=== PATIENT | male | born 1970 | race Caucasian/White ===

== ENCOUNTER 2021-11-27 14:56 | Outpatient (CLI) | payer OTHER, SELFPAY ==
[2021-11-27 10:30] LABS: Chloride* 102 mmol/L (96-114)
[2021-11-27 10:31] LABS: Potassium* 4.5 mmol/L (3.6-5.1); Sodium* 139 mmol/L (135-149)
[2021-11-27 10:33] LABS: Cholesterol* 249 mg/dL (90-199); Estimated Glomerular Filt Rate 92 ml/min
[2021-11-27 10:34] LABS: Blood Urea Nitrogen* 15 mg/dL (5-24); Calcium* 9.6 mg/dL (8.4-10.6); Carbon Dioxide* 29 mmol/L (20-32); Glucose* 102 mg/dL (60-115); HDL Cholesterol* 65 mg/dL (>=40); LDL Cholesterol Calculated 160 mg/dL (<100); Triglycerides* 122 mg/dL (40-149)
== END 2021-11-27 14:57 | disposition home or self-care (01) ==
PROVIDERS: PCP Family Medicine; Visit Provider Family Medicine
DX: Z12.5 Encounter for screening for malignant neoplasm of prostate (principal); Z13.6 Encounter for screening for cardiovascular disorders
CPT/HCPCS: 80048; 80061; 84153

== ENCOUNTER 2023-09-09 17:00 | Outpatient (RCR) | payer MEDICAID, SELFPAY ==
--- NOTE | 2023-07-22 11:38 | OT.OPOE ---
OT Outpatient Ortho Eval OT Outpatient Ortho Eval* Start: 07/22/23 07:18 Freq: Status: Active Protocol: Document 07/22/23 07:19 AMB (Rec: 07/22/23 11:22 AMB [id number]) E-signed By Na Pereira, OTR/L, CLT, DRAW BENCH OPERATOR HELPER OT OP Ortho Eval Details Complexity Complexity Low Insurance Information Insurance Information Medicaid,[employer] Outpatient History/Precautions Current Condition/Medical Diagnosis Referring Provider Dr Casarez Treatment Diagnosis LUE pain, weakness, limited AROM due to Medial epicondylitis M77.02 Date of Onset 07/08/[address] Casarez Medical Conditions Depression,Metal Implants, Respiratory,Arthritis Other Conditions Relevant hx: pt has hx of RUE lateral epicondylitis Other PMH (copied from ortho chart): Major depression, recurrent F33.9 - Major depressive disorder, recurrent, unspecified (ICD-10) GERD (gastroesophageal reflux disease) K21.9 - Gastro-esophageal reflux disease without esophagitis (ICD-10) Adult ADHD F90.9 - Attention-deficit hyperactivity disorder, unspecified type (ICD-10) Asthma J45.909 - Unspecified asthma, uncomplicated (ICD-10) Allergic rhinitis J30.9 - Allergic rhinitis, unspecified (ICD-10) IBS (irritable bowel syndrome) K58.9 - Irritable bowel syndrome without diarrhea (ICD -10) 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 - Spondylosis without myelopathy or radiculopathy, lumbar region (ICD-10) H/O excision of mass Z98.890 - Other specified postprocedural states (ICD-10) History of total left hip replacement (03/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) Z96.642 - Presence of left artificial hip joint (ICD-10) Hx of adenoidectomy Z90.89 - Acquired absence of other organs (ICD-10) Medications: albuterol sulfate 90 mcg/ actuation (ProAir HFA) 2 puffs inhalation Q4-6H PRN bupropion HCl 300 mg PO QAM cholecalciferol (vitamin D3) 2 ,000 units PO DAILY dextroamphetamine-amphetamine 10 mg ER (Adderall XR) 10 mg PO QAM fexofenadine 180 mg PO DAILY fluticasone propionate 50 mcg/ actuation 1 intranasal DAILY methocarbamol 500 mg PO TID PRN montelukast (Singulair) 10 mg PO QPM omega-3 fatty acids-fish oil 340-1,000 mg (Fish Oil) 1 cap PO QDAY omeprazole 20 mg PO QDAY Medical/Functional History Medical History Reviewed Yes Prior Level of Function/Mobility Prior to onset of left elbow medial epicondylitis, pt had full, pain-free use of his LUE . Pt is RHD, does have hx of lateral epicondylitis in his RUE, treated successfully conservatively. 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 Pt states it was relatively a slow onset but he did have one incident while doing a pull up that was the final straw, states he felt instant pain and he knew he could not ignore it any longer. Pt states initially the pain was quite severe throughout his forearm, now the pain is mostly centralized in the medial elbow. Pt denies paresthesia, although, he does occasionally have some tingling in his pinky. Pt denies constant pain. Pt has pain with specific activities that require gripping, especially if this is combined with lifting. Specific activities that increase pain include biceps curls, pull-ups , driving his motorcycle, or holding arm in a still position for a prolonged period of time. Pt also has pain when he straightens his elbow fully. Pt rates his average pain at 4-7, depending on which activity he is doing . Pt does not feel that either of his jobs irritate his pain , states he does not really do repetitive activities with his left hand for his work, does not need to type for prolonged periods of time and does not have increased pain with work related activities. Pt was given a prescription for Celebrex but states he really has not been using it regularly. Cannot take OTC NSAIDs as they trigger his IBS . Pt has not really been using ice on a regular basis either . Goniometric Comments Goniometric Comments Goniometric Comments 07/22/23 AROM of BUE is WNL throughout. Hand Pinch/Director Institution Strength Hand Right Director Institution Strength Position 1 (lbs) 122 Director Institution Strength Position 2 (lbs) 117 Lateral Pinch Strength (lbs) 22 Three Point Pinch (lbs) 24 Left Director Institution Strength Position 1 (lbs) 85 Director Institution Strength Position 2 (lbs) 115 Lateral Pinch Strength (lbs) 20 Three Point Pinch (lbs) 20 Comments Comments 07/22/23 Pt has pain in his LUE medial elbow with field collector and pinch strength testing, especially with field collector in position 1. OT Objective Data Hand Hand Dominance Right Observations/Posture/Limb Appearance Objective Observations 07/22/23 Mild swelling is appreciated over the medial epicondyle of the LUE. Pt is extremely hypermobile, demonstrated his ability to distract and rotate his fingers and hyper-extend his MPs ~60 deg in the clinic today, states all of his joints are like this. Sensation Sensation Assessment Summary Comments 07/22/23 Denies paresthesia, mild tingling reported in the pinky, once in a while. Upper Extremity Special Tests Elbow Cozens Test Positive Left Upper Extremity Special Tests Comments Comments 07/22/23 Pt experiences increased pain with resisted wrist flexion, gripping, and pronation. Pt is also point tender at insertion point of flexors on medial epicondyle of the LUE. OT Problems Problems Problems Decreased Strength,Decreased Range of Motion,Pain,Lifting, Gripping,Pinching Problems Comments Pt is not able to participate in all of his exs for his daily work-out due to his elbow pain. Pt relies on working out for joint protection (pt is very hypermobile) and depression management. Other Problems Opening Containers Assessment Assessment Assessment Provocative testing supports diagnosis of medial epicondyle . Occupational Therapy Treatment Plan - OP Potential Rehabilitation Potential Good Set Goals Goals Set with Patient Yes Goals Goals 1. Pt will be independent and compliant with HEP in order to resume full, pain-free use of the involved UE. 3 weeks 2. Pt will demonstrate full, pain-free AROM of the involved UE in order to improve ability to grasp and hold. 6 weeks 3. Pt will demonstrate pain- free field collector and pinch strength comparable to the uninvolved side in order to improve functional grasp, hold, reach, and lifting ability needed to complete self-care, leisure tasks, and work activities. 8 weeks. Treatment Plan Treatment Plan Evaluation,Edema Control, Iontophoresis,Joint Mobilization,Manual Therapy, Splinting,Ultrasound, Therapeutic Exercise, Therapeutic Activities,Self Care/Home Management,NMES Expected Frequency 1-2x Week Expected Duration 8-10 Weeks Home Program Home Program Home Program Initiated Home Program Specifics Pt was provided with training and practice in HEP for stretch of LUE wrist flexors / tendon glides. Pt was provided with written instructions for use at home as well. Also inst pt to use ice 2-3x daily at home, inst in IM with paper / foam cup, cold theory provided as well. Recertification Information Recertification Information Initial Certification Date 07/22/23 Recertification Start Date 10/20/23 Reasons to Continue Skilled Therapy Initiated OT today to address LUE elbow pain secondary to medial epicondylitis. Rehabilitation Potential Good Click To Default 'Per treatment plan' Per treatment plan Continued Plan of Care and Interventions Per treatment plan Provider Signature Shows Agreement With POC & Medical Necessity Physician Comment/Change Comment or Changes Physician NPI Number #
== END 2024-01-07 23:59 | disposition home or self-care (01) ==
PROVIDERS: PCP Family Medicine; Visit Provider Orthopaedic Surgery
DX: M77.02 Medial epicondylitis, left elbow (principal); R29.898 Other symptoms and signs involving the musculoskeletal system; R53.1 Weakness; Z51.89 Encounter for other specified aftercare
CPT/HCPCS: 97033; 97035; 97140; 97165

== ENCOUNTER 2023-10-19 09:10 | Outpatient (CLI) | payer OTHER, SELFPAY | END 2023-10-19 09:11 | disposition home or self-care (01) | PROVIDERS: PCP Family Medicine; Visit Provider Family Medicine | DX: Z00.00 Encounter for general adult medical examination without abnormal findings (principal); R53.83 Other fatigue; R68.82 Decreased libido; Z13.6 Encounter for screening for cardiovascular disorders; Z12.5 Encounter for screening for malignant neoplasm of prostate; Z13.9 Encounter for screening, unspecified | CPT/HCPCS: 80048; 80061; 84146; 84403; 84443; G0103 ==

== ENCOUNTER 2024-02-25 09:32 | Outpatient (CLI) | payer OTHER, SELFPAY ==
[2024-02-25 15:38] LABS: Chlamydia DNA Amplified* NOT DETECTED (No Detected); GC DNA Amplified* NOT DETECTED (No Detected)
== END 2024-02-25 09:33 | disposition home or self-care (01) ==
PROVIDERS: PCP Family Medicine; Visit Provider Family Medicine
DX: Z11.3 Encounter for screening for infections with a predominantly sexual mode of transmission (principal)
CPT/HCPCS: 86592; 86703; 87491; 87591